=== PATIENT | male | born 1990 | race Caucasian/White ===

== ENCOUNTER 2017-07-16 04:20 | Emergency (ER) | payer BC ==
[~2017-07-16] VITALS: Ht 170.2 cm; Wt 78.8 kg
[~2017-07-16 04:20] MED LIST: MULT-506 PO
[2017-07-16 04:24] VITALS: TEMP 36.4; Ht 170.2 cm; Wt 78.8 kg
[2017-07-16] MEDS ORDERED: PENI-82 PO (04:45)
[2017-07-16] MEDS ORDERED: OXYCODONE IR HOME PACK PO ONE (04:45)
[2017-07-16] MEDS ORDERED: OXYC1TAB3 PO (04:45)
[2017-07-16] MEDS ORDERED: PENICILLIN HOME PACK 500MG (4 DOSES)BTL PO ONE (04:45)
--- NOTE | 2017-07-16 04:46 | EMERGENCY ROOM VISIT NOTE ---
History First contact with patient: 04:34 Chief Complaint: DENTAL PAIN Stated Complaint: TOOTH PAIN/SWELLING Nursing Triage Summary: R sided dental pain since yesterday. pt reports he took naproxen yesterday which helped. but he has been up since 0100 with severe pain History of Present Illness The patient is a 27 year old male who presents to the Emergency Room with complaints of dental pain. The patient reports he developed pain in his right lower jaw yesterday. He took aspirin which helped his pain but states it then returned. He took naproxen before bed but woke up approximately 3 hours ago due to severe pain. He again tried taking naproxen and applying ice to the child without relief. He rates his discomfort as 10/10. The pain is throbbing. He denies any history of issues with his teeth. He does not have a dentist but plans to contact 1 first thing in the morning to make an appointment. He denies any difficulty breathing or swallowing. He denies any fevers or facial swelling. Review of Systems A 6 point review of systems was reviewed with the patient with pertinent positives and negatives as per history of present illness. All else were negative. Social History Smoking Status: Current Every Day Smoker Alcohol Use: occasionally Marital Status: single, in relationship Housing Status: lives with family Current/Historical Medications Scheduled Multivitamin (Multivitamin), 1 TAB PO DAILY Penicillin V Potassium (Veetids), 500 MG PO QID Scheduled PRN Oxycodone Ir (Roxicodone Ir), 1-2 TAB PO Q4H PRN for Pain Physical Exam Vital Signs Date Time Temp Pulse Resp B/P (MAP) Pulse Ox O2 Delivery O2 Flow Rate FiO2 07/16/17 04:24 36.4 65 18 138/93 97 Room Air Physical Exam VITALS: Vitals are noted on the nurse's note and reviewed by myself. Vital signs stable. GENERAL: This is a 27-year-old male, in no acute distress but uncomfortable appearing, well-developed well-nourished. SKIN: The skin was without rashes. EARS: External auditory canals clear, tympanic membranes pearly finn without erythema or effusion bilaterally. EYES: Pupils equal round and reactive to light and accommodation. MOUTH: Mucous membranes moist. There is no significant edema or erythema of the gums. The right lower wisdom tooth is impacted. There is tenderness to palpation of the surrounding gums. NECK: Supple without nuchal rigidity. There is a slightly enlarged right anterior cervical lymph node. HEART: Regular rate and rhythm without murmurs gallops or rubs. LUNGS: Clear to auscultation bilaterally without wheezes, rales or rhonchi. NEURO: Patient was alert and oriented to person place and time. Medical Decision & Procedures Medical Decision Differential diagnosis includes dental abscess, Wali's angina, dental infection, reversible pulpitis, among others. The patient was evaluated as above. He presents complaining of severe dental pain. He will be placed on penicillin. He was given a home pack and prescription for OxyIR. He plans to follow-up with the dentist as soon as possible. Conservative measures were discussed. He was advised to return for facial swelling, difficulty breathing, difficulty swallowing or fevers. He verbalized understanding of my assessment and treatment plan and was discharged home in good condition. Medication Reconcilliation Current Medication List: was personally reviewed by me Blood Pressure Screening Patient's blood pressure: Normal blood pressure Impression Primary Impression: Dentalgia Departure Information Dispostion Home / Self-Care Condition GOOD Prescriptions Oxycodone Ir (Roxicodone Ir) 5 Mg Tab 1-2 TAB PO Q4H Y for Pain, #12 TAB For Initial Treatment Prov: Minna Caldwell .[place] 07/16/17 Penicillin V Potassium (Veetids) 500 Mg Tab 500 MG PO QID for 10 Days, #40 TAB Prov: Minna Caldwell PA-C 07/16/17 Referrals No Doctor, Assigned (PCP) Patient Instructions My [facility] Additional Instructions You have been treated in the Emergency Department for Dental Pain. You have been prescribed Oxy IR to be used for pain control. This is a narcotic medication. You cannot drive or consume alcohol while on this medicine. This medicine should only be used for pain that cannot be controlled with over-the- counter pain medicines. You were prescribed Penicillin to be taken four times daily as prescribed. This is an antibiotic. All antibiotics have the potential to cause diarrhea. Stop this medication and contact a medical provider if you were to develop any significant adverse side effects including: wheezing, shortness of breath, passing out, vomiting, or a diffuse rash. Always take antibiotics as directed and COMPLETE the ENTIRE course regardless of the improvement of your symptoms. For pain control, you can use the following [id number] medicines (if >12 yo): - Extra strength (500mg/tab) Tylenol (acetaminophen) 2 tabs every 6 hours as needed. Avoid taking more than 4 grams (4000 mg) of Tylenol per day. This includes any other sources of acetaminophen you may take on a regular basis. - Regular strength (200 mg/tab) Advil (ibuprofen) 3-4 tabs every 4-6 hours as needed. Do not exceed a dose of 3200 mg per day. Refrain from smoking cigarettes or using chewing tobacco until you have been evaluated by your dentist. Keeping beverages lukewarm and consuming soft foods can decrease your pain. Warm compresses over the affected area may offer some relief. You MUST seek evaluation of your dental pain by a dentist following your visit to the Emergency Department. The Emergency Department is not capable of treating dental issues long-term. You should call your dentist as soon as possible to make an appointment for evaluation of your dental pain. Return to the emergency department if you develop the following symptoms despite treatment course outlined above: fever, intractable pain, increased redness, swelling, or purulent discharge.
[2017-07-16 04:58] VITALS: BP 131/90; PULSE 64; O2SAT 97
== END 2017-07-16 04:59 | disposition home or self-care (01) ==
LOC: C.EDB 04:22
DX: K08.89 Other specified disorders of teeth and supporting structures (principal); F17.210 Nicotine dependence, cigarettes, uncomplicated